=== PATIENT | male | born 1975 | race Caucasian/White ===

== ENCOUNTER 2016-08-09 16:25 | Emergency (ER) | payer OTHER ==
[~2016-08-09] VITALS: Ht 177.8 cm; Wt 90.0 kg
[2016-08-09] MEDS ORDERED: CEPH-460 PO (17:53)
[2016-08-09] MEDS ORDERED: IBUP800T23 PO (17:53)
--- NOTE | 2016-08-09 17:54 | PD ---
HPI Chief Complaint: Injury Time Seen by Provider: 17:52 Travel History International Travel<30 days: No Contact w/Intl Traveler<30days: No Traveled to known affect area: No History of Present Illness HPI 41-year-old male presents to the emergency Department with complaint of a laceration to the distal aspect of his left third finger after jamming it in a doorway. He was moving a large piece of equipment that weighed a lot and it fell back and crushed his finger. He is up-to-date on his tetanus vaccination. He denies paresthesias, loss of sensation, decreased range of motion, decreased strength to the affected finger. Has not taken any medications or tried any treatments to alleviate his symptoms. He has applied pressure to control bleeding. No known allergies. Denies significant past medical history. No other modifying factors or associated signs and symptoms. PFSH Past Medical History Medical History: Denies Significant Hx Diminished Hearing: No Past Surgical History Surgical History: No Previous Surgery Social History Alcohol Use: Yes (SOCIALLY) Tobacco Use: No Substance Use: No Allergies-Medications (Allergen,Severity, Reaction): Coded Allergies: No Known Allergies (Unverified , 08/09/16) Reported Meds & Prescriptions Reported Meds & Active Scripts Active Lortab (Hydrocodone-Acetaminophen) 5-325 Mg Tab 1 Tab PO Q4H PRN Ibuprofen 800 Mg Tab 800 Mg PO Q6HR PRN Keflex (Cephalexin) 500 Mg Cap 500 Mg PO Q8H 7 Days Review of Systems Except as stated in HPI: all other systems reviewed are Neg Physical Exam Narrative GENERAL: Well-nourished, well-developed male patient, in no acute distress SKIN: Warm and dry. Distal aspect involving the pad of the left third digit laceration that measures approximately 2-1/2 cm and is L-shaped; fingers with full range of motion and good opposition; sensory intact; less than 3 second cap refill; nail bed is not involved. Left upper extremity supple and non- tense with 2+ radial pulse and sensory intact without erythema or edema. HEAD: Atraumatic. Normocephalic. EYES: Pupils equal and round. No scleral icterus. No injection or drainage. ENT: Mucosa pink and moist. Airway patent. NECK: Trachea midline. CARDIOVASCULAR: Regular rate. RESPIRATORY: No accessory muscle use. GASTROINTESTINAL: Flat. MUSCULOSKELETAL: No obvious deformities. No clubbing. No cyanosis. No edema. NEUROLOGICAL: Awake and alert. Oriented 3. No obvious cranial nerve deficits. Motor grossly within normal limits. Normal speech. PSYCHIATRIC: Appropriate mood and affect; insight and judgment normal. Data Data Orders Bupivacaine Pf 0.5% Inj (Marcaine Pf 0.5 (08/09/16 18:00) Lidocaine 1% Inj (50 Ml) (Xylocaine 1% I (08/09/16 18:00) Finger ([id number]) (08/09/16 ) Cefazolin Inj (Ancef Inj) (08/09/16 18:15) Iv Access Insert/Monitor (08/09/16 18:14) Splint Or Brace Apply/Monitor (08/09/16 20:42) Finger Splint (08/10/16 ) [facility] Medical Decision Making Medical Screen Exam Complete: Yes Emergency Medical Condition: Yes Medical Record Reviewed: Yes Differential Diagnosis Laceration, finger fracture, amputation, contusion, abrasion Narrative Course 41-year-old male with laceration to the distal aspect of his left third finger. Left third finger x-ray ordered. See procedure note for laceration repair. Patient is up-to-date on tetanus vaccination. 1824: Left third digit x-ray concludes There is a comminuted fracture of the third distal phalangeal tuft with associated soft tissue injury having the appearance of an open fracture injury with a displaced ossific fragment extending to the skin surface. Overlying soft tissue swelling and soft tissue emphysema. Call out to hand placed. IV site obtained. 1 g Ancef ordered and administered in the ER. 0: Jose Yi PA-C, assumed patient care at this time. See his note for final disposition and laceration repair. Diagnosis Primary Impression: Fingertip amputation Qualified Code: S68.129A - Fingertip amputation, initial encounter Additional Impressions: Finger laceration Qualified Code: S61.219A - Finger laceration, initial encounter Open finger fracture Qualified Code: S62.633B - Open displaced fracture of distal phalanx of left middle finger, initial encounter Referrals: Hand Surgeon Primary Care Physician Patient Instructions: Care For Your Stitches (ED), Finger Laceration (ED), General Instructions Departure Forms: Tests/Procedures, Work Release Enter return to work date: Aug 14, 2016 Additional Instructions: Keep area clean and dry Limit left middle finger activity to decrease risk of sutures coming undone Ibuprofen or Tylenol as directed nothing for pain and inflammation Ice pack to area as needed to decrease pain Return to the emergency department or follow-up with primary care provider in 7- 10 days for suture removal Follow up with primary care provider Return to the emergency department immediately with worsening of symptoms, particularly if reddened streaks up or down the affected extremity from the suture site, fever, numbness/tingling in the affected extremity, loss of sensation in the affected extremity, severe swelling of the affected Med/Other Pt SpecificInfo: Prescription(s) given Scripts Hydrocodone-Acetaminophen (Lortab)5-325 Mg Tab1 Tab PO Q4H PRN (PAIN) #10 TAB Ref 0 Prov:Hipolito Garcia MD 08/09/16 Ibuprofen 800 Mg [id number] Mg PO Q6HR PRN (PAIN) #30 TAB Ref 0 Prov:Bonnie Friedman 08/09/16 Cephalexin (Keflex)500 Mg [id number] Mg PO Q8H 7 Days Ref 0 Prov:Bonnie Friedman 08/09/16 Disposition: 01 DISCHARGE HOME Condition: Stable Bonnie Friedman Aug 09, 2016 17:54
[2016-08-09] MEDS ORDERED: HYDR-3533 PO (17:55)
[2016-08-09] MEDS ORDERED: BUPIVACAINE HCL PF 0.5% 10 ML VIAL INFIL ONE (18:00)
[2016-08-09] MEDS ORDERED: LIDOCAINE HCL 1% 50 ML VIAL INFIL ONE (18:00)
--- NOTE | 2016-08-09 18:20 | RADRPT ---
EXAM DATE/TIME: 08/09/2016 18:12 [facility] COMPARISON: No previous studies available for comparison. INDICATIONS : Left hand third digit laceration, smashed finger. MEDICAL HISTORY : None. SURGICAL HISTORY : None. ENCOUNTER: Initial ACUITY: 1 day PAIN SCORE: 10/10 LOCATION: Left hand, 3rd distal digit. FINDINGS: There is a comminuted fracture of the third distal phalangeal tuft with associated soft tissue injury having the appearance of an open fracture injury with a displaced ossific fragment extending to the skin surface. Overlying soft tissue swelling and soft tissue emphysema. CONCLUSION: Comminuted third distal phalanx open fracture injury with associated soft tissue deformity. Armin Bailey MD on August 09, 2016 at 18:17 Board Certified Radiologist. This report was verified electronically.
--- NOTE | 2016-08-09 20:42 | PD ---
Physical Exam Narrative Patient signed out to me by Katey CHOW pending hand consult. Please see her documentation for full H&P. Data Data Orders Bupivacaine Pf 0.5% Inj (Marcaine Pf 0.5 (08/09/16 18:00) Lidocaine 1% Inj (50 Ml) (Xylocaine 1% I (08/09/16 18:00) Finger ([id number]) (08/09/16 ) Cefazolin Inj (Ancef Inj) (08/09/16 18:15) Iv Access Insert/Monitor (08/09/16 18:14) Splint Or Brace Apply/Monitor (08/09/16 20:42) MDM Supervised Visit with JOHNATHAN: No Narrative Course Patient in no obvious distress upon re-evaluation. All pertinent Radiology result(s) discussed with patient/family. Any questions/concerns in reference to patient diagnosis/condition discussed and clarified prior to patient's discharge. Reinforced sheer importance of close follow up with hand surgeon. Instructed patient to return to ED immediately, if symptoms return/worsen. Pt showed understanding of above instructions. Further instructions and recommendations were detailed in discharge paperwork. Pt ambulated without difficulty out of ED at discharge. Procedures Procedure Narrative LACERATION REPAIR LOCATION: Left middle finger distal phalanx palmar surface LENGTH: Approximately 5 cm in total length NUMBER OF STITCHES/ANDREINA: 8 simple interrupted REPAIR: Verbal consent was obtained. The area of the laceration was cleaned and prepped. Digital block was performed using a mixture of lidocaine without epi and Marcaine without epi. The wound was copiously irrigated and explored without evidence of foreign body, bony involvement, ligament injury, tendon injury, or neurovascular injury. The wound was closed using 5-0 Vicryl. This was a single layer repair. A sterile dressing was applied by nurse. The patient was advised to keep the affected area as clean and dry as possible using soap and water. There were no complications. Patient tolerated the procedure well. Physician Communication Physician Communication 1944 I discussed patient with Dr. Weeks, hand surgeon gas operations superintendent, who recommends closing laceration, antibiotics, and outpatient follow-up next week in his office. Diagnosis Primary Impression: Fingertip amputation Qualified Code: S68.129A - Fingertip amputation, initial encounter Additional Impressions: Open finger fracture Qualified Code: S62.633B - Open displaced fracture of distal phalanx of left middle finger, initial encounter Finger laceration Qualified Code: S61.219A - Finger laceration, initial encounter Referrals: Dacia Weeks MD 1 week Hand Surgeon Primary Care Physician Patient Instructions: General Instructions, Care For Your Stitches (ED), Finger Laceration (ED) Departure Forms: Work Release, Enter return to work date: Tests/Procedures Additional Instruction: Call Dr. Weeks hand surgeon for an appointment for next week for follow-up. Keep area clean and dry Limit left middle finger activity to decrease risk of sutures coming undone Ibuprofen or Tylenol as directed nothing for pain and inflammation Ice pack to area as needed to decrease pain Return to the emergency department or follow-up with primary care provider in 7- 10 days for suture removal Follow up with primary care provider Return to the emergency department immediately with worsening of symptoms, particularly if reddened streaks up or down the affected extremity from the suture site, fever, numbness/tingling in the affected extremity, loss of sensation in the affected extremity, severe swelling of the affected Scripts Hydrocodone-Acetaminophen (Lortab)5-325 Mg Tab1 Tab PO Q4H PRN (PAIN) #10 TAB Ref 0 Prov:Hipolito Garcia MD 08/09/16 Ibuprofen 800 Mg [id number] Mg PO Q6HR PRN (PAIN) #30 TAB Ref 0 Prov:Bonnie FriedmanP 08/09/16 Cephalexin (Keflex)500 Mg [id number] Mg PO Q8H 7 Days Ref 0 Prov:Bonnie FriedmanP 08/09/16 Disposition: 01 DISCHARGE HOME Condition: Stable Madhu Yi Aug 09, 2016 20:42
== END 2016-08-09 21:08 | disposition home or self-care (01) ==
LOC: NETRI 16:25 → NEPB 21:08
DX: S68.113A Complete traumatic metacarpophalangeal amputation of left middle finger, initial encounter (principal); S62.633B Displaced fracture of distal phalanx of left middle finger, initial encounter for open fracture; W45.8XXA Other foreign body or object entering through skin, initial encounter; W20.8XXA Other cause of strike by thrown, projected or falling object, initial encounter; Y92.009 Unspecified place in unspecified non-institutional (private) residence as the place of occurrence of the external cause
CPT/HCPCS: 12002; 73140; 96374; 99283; J0690